=== PATIENT | female | born 1945 | race Caucasian/White ===

== ENCOUNTER → 2017-06-14 09:54 | Outpatient (CLI) | payer MEDICARE, OTHER ==
[2012-04-10 17:23] VITALS: BMI 23.9
[2017-06-15 17:13] LABS: HEPATITIS C ANTIBODY <0.1 (0.0-0.9)
== END | disposition home or self-care (01) ==
LOC: D.US 06-13 10:00
PROVIDERS: Internal Medicine Gastroenterology
DX: Z85.038 Personal history of other malignant neoplasm of large intestine (principal); Z86.010 Personal history of colon polyps; R74.8 Abnormal levels of other serum enzymes; R19.7 Diarrhea, unspecified; R94.5 Abnormal results of liver function studies

== ENCOUNTER → 2017-06-20 07:41 | Outpatient (CLI) | payer MEDICARE, OTHER ==
[2012-04-10 17:23] VITALS: BMI 23.9
[2017-06-20 09:04] LABS: ALBUMIN 3.5 g/dL (3.4-5.0); BILIRUBIN - DIRECT 0.06 mg/dL (0.00-0.30); BILIRUBIN - INDIRECT 0.13 mg/dL (0.00-1.00); BILIRUBIN - TOTAL 0.19 mg/dL (0.2-1.3); PROTEIN - SERUM 6.8 g/dL (6.4-8.2)
== END | disposition home or self-care (01) ==
LOC: D.LAB 07:41 → D.MRI 08:00
PROVIDERS: Internal Medicine Gastroenterology
DX: N28.9 Disorder of kidney and ureter, unspecified (principal); K76.9 Liver disease, unspecified; R94.5 Abnormal results of liver function studies

== ENCOUNTER 2017-10-21 00:47 | Emergency (ER) | payer MEDICARE, OTHER ==
[2012-04-10 17:23] VITALS: BMI 23.9
[2017-10-21 01:54] LABS: BASOPHILS 0.2 % (0-2); EOSINOPHILS 0.8 % (0-7); HEMATOCRIT 37.5 % (36.0-48.0); HEMOGLOBIN 12.6 g/dL (12-16); IMMATURE GRANULOCYTES 0.4 % (0-5); LYMPHOCYTES 17.6 % (15-50); MCH 30.7 pg (26.0-34.0); MCHC 33.6 g/dL (31.0-37.0); MCV 91.5 fL (80.0-100.0); MEAN PLATELET VOLUME 10.1 fL (7.4-10.4); MONOCYTES 5.3 % (2-11); NEUTROPHILS 75.7 % (40-80); RDW 14.5 % (11.5-14.5); WBC 11.3 10x3/uL (4.8-10.8)
[2017-10-21 02:01] LABS: PLATELET COUNT 168 10x3/uL (130-400)
[2017-10-21 02:06] LABS: ALBUMIN 3.6 g/dL (3.4-5.0); ANION GAP 9.8 mmol/L (8-16); BILIRUBIN - TOTAL 0.3 mg/dL (0.2-1.3); CARBON DIOXIDE 28.2 mmol/L (21.0-32.0); PROTEIN - SERUM 6.7 g/dL (6.4-8.2)
== END 2017-10-21 02:40 | disposition home or self-care (01) ==
LOC: D.ER 00:47
PROVIDERS: Emergency Medicine
DX: R11.10 Vomiting, unspecified (principal); I95.9 Hypotension, unspecified; R55 Syncope and collapse; T43.215A Adverse effect of selective serotonin and norepinephrine reuptake inhibitors, initial encounter; Y92.019 Unspecified place in single-family (private) house as the place of occurrence of the external cause; E11.65 Type 2 diabetes mellitus with hyperglycemia; F17.200 Nicotine dependence, unspecified, uncomplicated

== ENCOUNTER → 2018-01-05 08:27 | Outpatient (CLI) | payer MEDICARE, OTHER ==
[2012-04-10 17:23] VITALS: BMI 23.9
== END | disposition home or self-care (01) ==
LOC: D.MRI 12-20 10:00
DX: K76.9 Liver disease, unspecified (principal); N28.9 Disorder of kidney and ureter, unspecified

== ENCOUNTER → 2018-01-17 11:04 | Outpatient (CLI) | payer MEDICARE, OTHER ==
[2012-04-10 17:23] VITALS: BMI 23.9
== END | disposition home or self-care (01) ==
LOC: D.CT 11:04
DX: R91.1 Solitary pulmonary nodule (principal)

== ENCOUNTER 2018-07-27 00:45 | Observation (INO) | payer MEDICARE, OTHER ==
[2018-07-27] VITALS (8 sets, daily range): BP systolic 96–142; BP diastolic 41–55; Ht 149.9 cm; Wt 50.8 kg
[~2018-07-27] VITALS: Ht 149.9 cm; Wt 50.8 kg
[2018-07-27] MEDS ORDERED: PIOGLITAZONE HC30 MG PO (00:50)
[2018-07-27] MEDS ORDERED: GLUCOPHAGE500 MG PO (00:50)
[2018-07-27] MEDS ORDERED: NEXIUM40 MG PO (00:51)
[2018-07-27] MEDS ORDERED: MIRAPEX1 MG PO (00:51)
[2018-07-27] MEDS ORDERED: INDERAL LA60 MG PO (00:51)
[2018-07-27] MEDS ORDERED: SYNTHROID50 MCG PO (00:52)
[2018-07-27] MEDS ORDERED: NEURONTIN 300300 MG PO (00:52)
[2018-07-27] MEDS ORDERED: LEXAPRO20 MG PO (00:53)
[2018-07-27] MEDS ORDERED: ZANAFLEX4 MG PO (00:53)
[2018-07-27] MEDS ORDERED: LANTUS SOL100 UNIT/1 SC (00:53)
[2018-07-27 01:43] LABS: BASOPHILS 0.1 % (0-2); EOSINOPHILS 1.7 % (0-7); HEMATOCRIT 33.1 % (36.0-48.0); HEMOGLOBIN 10.7 g/dL (12-16); IMMATURE GRANULOCYTES 0.3 % (0-5); LYMPHOCYTES 21.3 % (15-50); MCH 28.8 pg (26.0-34.0); MCHC 32.3 g/dL (31.0-37.0); MEAN PLATELET VOLUME 9.4 fL (7.4-10.4); MONOCYTES 6.8 % (2-11); NEUTROPHILS 69.8 % (40-80); PLATELET COUNT 181 10x3/uL (130-400); RBC 3.72 10x6/uL (4.00-5.40); RDW 16.3 % (11.5-14.5); WBC 7.5 10x3/uL (4.8-10.8)
--- NOTE | 2018-07-27 01:50 | NUR ---
IV SITED TO RIGHT WRIST USING 20G IV CATH X 1 STICK, FLUSHED, TAPED SECURELY.
[2018-07-27 01:55] LABS: APTT 32.7 SECONDS (22.8-39.4); INR 1.04 (0.85-1.17); PROTIME 13.1 SECONDS (11.6-15.0)
[2018-07-27 02:04] LABS: ALBUMIN 2.8 g/dL (3.4-5.0); ALKALINE PHOSPHATASE 97 U/L (46-116); ALT (SGPT) 19 U/L (10-68); BILIRUBIN - TOTAL 0.17 mg/dL (0.2-1.3); CALC OSMOLALITY 289 mosm/kg (275-300); CALCIUM 8.3 mg/dL (8.5-10.1); CHLORIDE - SERUM 103 mmol/L (98-107); GLUCOSE 259 mg/dL (74-106); POTASSIUM - SERUM 3.7 mmol/L (3.5-5.1); PROTEIN - SERUM 6.3 g/dL (6.4-8.2); SODIUM 140 mmol/L (136-145); UREA NITROGEN 18 mg/dL (7-18); eGFR NON AFRICAN AMERICAN 57 mL/min (90-120)
[2018-07-27 02:22] LABS: CKMB 1.8 U/L (0.0-3.6); CREATINE KINASE 81 UL (21-215); MAGNESIUM - SERUM 1.6 mg/dL (1.8-2.4); THYROID STIMULATING HORMONE 5.98 uIU/mL (0.36-3.74); TROPONIN-I < 0.017 ng/mL (0.000-0.060)
--- NOTE | 2018-07-27 03:39 | NUR ---
REPORT GIVEN TO PRETTY RUSH
--- NOTE | 2018-07-27 03:59 | NUR ---
PT ARRIVED TO ROOM 2115. PT IS AAO, UP AD NOEL STATES SHE WILL CALL NURSE IF ASSIST IS NEEDED. SLIGHT WEAKNESS IS NOTED ON LOWER EXTREM. PT HAS A RIGHT WRIST/FOREARM 20G S/L SANDWICH GIVEN PT WILL CALL FOR ASSIST WHEN NEEDED. ADMIT COMPLETE. WILL CPOC
[2018-07-27] MEDS ORDERED: NORCO 10-325 TA1 TAB PO (04:08)
[2018-07-27] MEDS ORDERED: MELATONIN10 M1 PO (04:09)
[2018-07-27] MEDS ORDERED: OSTEO BI-FLEX1 EAC1 PO (04:10)
--- NOTE | 2018-07-27 08:08 | NUR ---
TELEMETRY SR. REFUSES SCDS THIS AM. CALL LIGHT IN REACH. WILL CONT. PLAN OF CARE.
--- NOTE | 2018-07-27 11:20 | NUR ---
LEAVING FOR MRI BY W/C.
--- NOTE | 2018-07-27 12:56 | NUR ---
CAROTID DOPPLER DONE AT BS.
[2018-07-27 13:12] LABS: CHOL - HDL RATIO 3.4 ratio (2.3-4.1)
--- NOTE | 2018-07-27 19:14 | NUR ---
PT WALKING [facility] MED 2. PT BACK TO ROOM. NAME AND DATE PLACED ON BOARD. PT DENIES ANY NEEDS. NO S/S OF DISTRESS. PT STATES NO CHANGES FROM THIS MORNING WHEN NURSE FIRST MET, PT IS AAO UP AD NOEL WITH STEADY GAIT. WILL CPOC
--- NOTE | 2018-07-27 22:04 | NUR ---
PT FSBS IS 198 15 UNITS OF LANTUS GIVEN ORDERED. PT GIVEN NORCO REQUESTED .PT RESTING IN BED. FAMILY AT BEDSIDE. DENIES ANY NEEDS. WILL CPOC
--- NOTE | 2018-07-28 02:45 | NUR ---
PT SLEEP, RESP EVEN AND UNLABORED. FAMILY AT BEDSIDE. PT AROUSES TO VERBAL STIMULI. PT HAS BEEN NPO SINCE MIDNIGHT FOR CTA OF CAROTIDS TODAY. PT DENIES ANY NEEDS. NO S/S OF DISTRESS. WILL CPOC
--- NOTE | 2018-07-28 06:30 | NUR ---
PT RESTING IN BED. SPOKE WITH PT ABOUT INDERAL MEDICATION. YESTURDAY PT TOLD ME SHE IS ON 120MG QHS. NOTED THAT PT HR DROPPED DOWN TO 45 MOST OF NIGHT AND 41 DURING THIS HOUR. ACCORDING TO PHARMACY AND DAUGHTER PT ON 60MG QHS. WILL CHANGE IN MED REC. SPOKE TO NEW NURSE IN CHARGE ABOUT CHANGING EMAR AND EDUCATED PT REGARDING MEDICATION AND IMPORTANCE OF CORRECT DOSING, PT VERBALIZED UNDERSTANDING. PT DENIES ANY NEEDS. NO S/S OF DISTRESS. WILL CPOC
[2018-07-28 07:51] LABS: ALBUMIN 2.8 g/dL (3.4-5.0); BILIRUBIN - TOTAL 0.23 mg/dL (0.2-1.3); CREATININE - SERUM 0.8 mg/dL (0.6-1.3); PROTEIN - SERUM 6.5 g/dL (6.4-8.2)
[2018-07-28 07:52] LABS: BASOPHILS 0.3 % (0-2); EOSINOPHILS 1.6 % (0-7); HEMATOCRIT 34.5 % (36.0-48.0); HEMOGLOBIN 11.3 g/dL (12-16); IMMATURE GRANULOCYTES 0.3 % (0-5); LYMPHOCYTES 42.7 % (15-50); MCH 29.1 pg (26.0-34.0); MCHC 32.8 g/dL (31.0-37.0); MCV 88.9 fL (80.0-100.0); MEAN PLATELET VOLUME 9.9 fL (7.4-10.4); MONOCYTES 8.8 % (2-11); NEUTROPHILS 46.3 % (40-80); PLATELET COUNT 196 10x3/uL (130-400); RBC 3.88 10x6/uL (4.00-5.40); RDW 16.6 % (11.5-14.5); WBC 6.7 10x3/uL (4.8-10.8)
[2018-07-28 08:24] LABS: ANION GAP 11.7 mmol/L (8-16); CARBON DIOXIDE 31.5 mmol/L (21.0-32.0); MAGNESIUM - SERUM 2.2 mg/dL (1.8-2.4); POTASSIUM - SERUM 5.2 mmol/L (3.5-5.1)
--- NOTE | 2018-07-28 08:34 | NUR ---
KRISTIAN FOR X-RAY BY W/C FOR CTA CAROTIDS.
[2018-07-28 08:39] VITALS: BP 147/40
[2018-07-28 11:36] VITALS: BP 105/42
[2018-07-28] MEDS ORDERED: LIPITOR10 MG PO (12:45)
[2018-07-28] MEDS ORDERED: BAYER CHEWABLE81 MG PO (12:46)
--- NOTE | 2018-07-28 13:15 | NUR ---
TRIPPED ON SHOWER CHAIR AND FELL INTO HAND RAIL GETTING OUT OF SHOWER. SM BUMP NOTED BEHIND LEFT EAR. CARLYLE CARRANZA NOTIFIED.
--- NOTE | 2018-07-28 13:21 | NUR ---
TRIPPED AND FELL GETTING OUT OF SHOWER. HIT RIGHT SIDE ON ONTO HAND RALE. SM BUMP NOTED TO SITE. DILLON TADEO NOTIFIED.
--- NOTE | 2018-07-28 13:42 | NUR ---
VS 98.9 77 20 195/66 96% RA. EXAMINED BY DILLON TADEO. NO NEW ORDERS. WILL CONT. WITH DCD.
--- NOTE | 2018-07-28 14:11 | NUR ---
IV AND TELEMETRY DCD. DC PLANS GIVEN. UNDERSTANDING VOICED. ESCORTED TO CAR BY W/C.
--- NOTE | 2018-07-31 08:08 | MORECARE ---
CASE MANAGEMENT DISCHARGE SUMMARY PATIENT: BERENICE VALENCIA UNIT: [id number] ADM DATE: 07/27/18 AGE: 73 : 43 SEX: F ROOM/BED: D.4446 AUTHOR: HELEN ROOT PHYSICIAN: REFERRING PHYSICIAN: ADOLFO OLGUIN DO DATE OF SERVICE: 07/31/18 Discharge Plan Patient Name: BERENICE VALENCIA [facility] [facility] 1945 Planned Disposition: Home Anticipated Discharge Date: 07/28/18 Discharge Date: 07/28/2018 Expected LOS: 1 Initial Reviewer: [email or web address] Initial Review Date: 07/31/2018 Generated: 07/31/18 9:08 am Coverage Notice Reviewer: [email or web address] Ousmane Watkins Notice Issued Date-Time: 07/28/2018 11:18 Notice Type: Medicare Outpatient Observation Notice Notice Delivered To: Patient Relationship to Patient: Self Handling Tech Name: Delivery Method: HAND - Hand Delivered Aaliyah Days: Prior Verbal Notification: Recipient Understood Notice: Yes Recipient Signature: Yes Med Rec Note Co-signed by Attending: Coverage Notice Comment: Patient Name: BERENICE VALENCIA Page [phone] at 0808 All edits/amendments must be made on the electronic document DICTATION DATE: 07/31/18 0808 GAS MAKER: DM 07/31/18 0808 RPT#: [id number] DC DATE:07/28/18 STATUS: DIS IN [facility] [address] [place] [address] END OF REPORT
--- NOTE | 2018-07-31 08:15 | MORECARE ---
CASE MANAGEMENT DISCHARGE SUMMARY PATIENT: BERENICE VALENCIA UNIT: [id number] ADM DATE: 07/27/18 AGE: 73 : 43 SEX: F ROOM/BED: D.7912 AUTHOR: HELEN ROOT PHYSICIAN: REFERRING PHYSICIAN: ADOLFO OLGUIN DO DATE OF SERVICE: 07/31/18 Discharge Plan Patient Name: BERENICE VALENCIA [facility] [facility] 1945 Planned Disposition: Home Anticipated Discharge Date: 07/28/18 Discharge Date: 07/28/2018 Expected LOS: 1 Initial Reviewer: [email or web address] Initial Review Date: 07/31/2018 Generated: 07/31/18 9:15 am Coverage Notice Reviewer: [email or web address] Ousmane Watkins Notice Issued Date-Time: 07/28/2018 11:18 Notice Type: Medicare Outpatient Observation Notice Notice Delivered To: Patient Relationship to Patient: Self Cabana Attendant Name: Delivery Method: HAND - Hand Delivered Aaliyah Days: Prior Verbal Notification: Recipient Understood Notice: Yes Recipient Signature: Yes Med Rec Note Co-signed by Attending: Coverage Notice Comment: Patient Name: BERENICE VALENCIA Page [phone] at 0815 All edits/amendments must be made on the electronic document DICTATION DATE: 07/31/18814 LOADER OPERATOR: CRESENCIO 07/31/18 0815 RPT#: [id number] DC DATE:07/28/18 STATUS: DIS IN [facility] [address] [place] [address] END OF REPORT
--- NOTE | 2018-08-05 12:54 | EC ---
PATIENT:BERENICE VALENCIA DATE OF SERVICE: 07/27/18 SEX: F MEDICAL RECORD: [id number] DATE OF : 41 LOCATION:D.M2 D.211 AGE OF PATIENT: 73 ADMISSION DATE: 07/27/18 REFERRING PHYSICIAN: INTERPRETING PHYSICIAN: ASHLEY ENCINAS MD ECHOCARDIOGRAM REPORT ECHO CHARGES 4 ECHO COMPLETE Date: 07/27/18 CLINICAL DIAGNOSIS: TIA HX OF TIA'S ECHOCARDIOGRAPHIC MEASUREMENTS (adult normal given) AC root (d.<3.7cm) 2.8 cm LV Septum d (<1.2 cm> 1.1 cm Valve Excursion 1.6 cm LV Septum (systole) 1.3 cm Left Atria (s.<4.0cm> 3.1 cm LVPW d(<1.2cm) 1.1 cm RV (d.<2.3cm) 2.5 cm LVPW (sytole) 1.6 cm LV diastole(<5.6CM) 3.4 cm MV E-F(>70mm/sec) cm LV systole 2.1 cm LVOT Diameter 1.9 cm MV exc.(>10mm) 1.3 cm Est.ejection fraction (50-75%) % DOPPLER: LVIT cm/sec A 89.0 cm/sec E 103 cm/sec LA cm/sec RVSP 45 mmHg LVOT 110 cm/sec AOP1/2T 896 m/s Asc. Ao 147 cm/sec RVOT 69 cm/sec RA cm/sec PA 112 cm/sec AV Gradient Peak 8.59 mmHg AV Mean 4.33 mmHg AV Area 2.3 cm MV Gradient Peak 6.72 mmHg MV Mean 2.17 mmHg MV Area cm COMMENTS: Financial Professional: Geremias MEJIA It Architecture Analyst: 3 Dr. Platt TAPE# PACS Pericardial Effusion N DATE OF SERVICE: 07/27/2018 Adequate 2-D echo, color flow and spectral Doppler, and M-mode. No LVH. LV internal dimensions are normal. Wall motion is normal. EF is greater than or equal to 55%. Aortic valve is tricuspid. No evidence of stenosis by Doppler interrogation. Mild AI by color flow imaging. Left atrium is normal at 3.1 cm. Mitral valve shows no prolapse. Mild MR. Right-sided chambers are grossly normal. Mild TR. ECHOCARDIOGRAM REPORT [id number] BERENICE VALENCIA TRANSINT:[id number] Voice Confirmation ID: [id number] DOCUMENT ID: [id number] ASHLEY ENCINAS MD at 1254 CC: [id number] DICTATION DATE: 07/27/18 1408 MANAGER HEART: 07/27/18 1857 DIS IN 07/28/18 [facility] [address] [place] [place] [id number]
== END 2018-07-28 14:12 | disposition home or self-care (01) ==
LOC: D.ER 00:45 → OBSVTIME 03:04 → D.M2 03:04
PROVIDERS: Family Medicine; ADMIT Family Medicine
DX: G45.9 Transient cerebral ischemic attack, unspecified (principal); E11.65 Type 2 diabetes mellitus with hyperglycemia; E03.9 Hypothyroidism, unspecified; D64.9 Anemia, unspecified; Z87.891 Personal history of nicotine dependence; K21.9 Gastro-esophageal reflux disease without esophagitis; Z86.73 Personal history of transient ischemic attack (TIA), and cerebral infarction without residual deficits

== ENCOUNTER 2019-05-29 22:21 | Emergency (ER) | payer MEDICARE, OTHER ==
[~2019-05-29] VITALS: Ht 149.9 cm; Wt 50.0 kg
[~2019-05-29 22:21] MED LIST: BAYER CHEWABLE81 MG PO; GLUCOPHAGE500 MG PO; INDERAL LA60 MG PO; LANTUS SOL100 UNIT/1 SC; LEXAPRO20 MG PO; LIPITOR10 MG PO; MELATONIN10 M1 PO; MIRAPEX1 MG PO; NEURONTIN 300300 MG PO; NEXIUM40 MG PO; NORCO 10-325 TA1 TAB PO; OSTEO BI-FLEX1 EAC1 PO; PIOGLITAZONE HC30 MG PO; SYNTHROID50 MCG PO; ZANAFLEX4 MG PO
[2019-05-29 22:35] VITALS: Ht 149.9 cm; Wt 50.0 kg
[2019-05-29 23:35] LABS: HEMATOCRIT 34.3 % (36.0-48.0); HEMOGLOBIN 11.3 g/dL (12-16); LYMPHOCYTES 26.6 % (15-50); MCH 28.7 pg (26.0-34.0); MCHC 32.9 g/dL (31.0-37.0); MCV 87.1 fL (80.0-100.0); MEAN PLATELET VOLUME 9.8 fL (7.4-10.4); NEUTROPHILS 65.6 % (40-80); PLATELET COUNT 186 10x3/uL (130-400); RBC 3.94 10x6/uL (4.00-5.40); WBC 11.7 10x3/uL (4.8-10.8)
[2019-05-29 23:46] LABS: ALBUMIN 3.1 g/dL (3.4-5.0); ANION GAP 9.5 mmol/L (8-16); BILIRUBIN - TOTAL 0.24 mg/dL (0.2-1.3); CALCIUM 8.5 mg/dL (8.5-10.1); CARBON DIOXIDE 29.6 mmol/L (21.0-32.0); CREATININE - SERUM 0.9 mg/dL (0.6-1.3); POTASSIUM - SERUM 4.1 mmol/L (3.5-5.1); PROTEIN - SERUM 6.6 g/dL (6.4-8.2)
[2019-05-30 01:06] VITALS: BP 136/75
== END 2019-05-30 01:07 | disposition home or self-care (01) ==
LOC: D.ER 22:21
PROVIDERS: Emergency Medicine
DX: S89.92XA Unspecified injury of left lower leg, initial encounter (principal); W19.XXXA Unspecified fall, initial encounter; Y93.9 Activity, unspecified; Y92.9 Unspecified place or not applicable; M79.89 Other specified soft tissue disorders; E11.40 Type 2 diabetes mellitus with diabetic neuropathy, unspecified; Z79.4 Long term (current) use of insulin; Z86.73 Personal history of transient ischemic attack (TIA), and cerebral infarction without residual deficits

== ENCOUNTER → 2020-03-07 11:30 | Outpatient (CLI) | payer MEDICARE, OTHER ==
[2019-05-29 22:35] VITALS: BMI 22.2
== END | disposition home or self-care (01) ==
LOC: D.MAMMO 11:30
PROVIDERS: ATTEND Nurse Practitioner Family
DX: Z12.31 Encounter for screening mammogram for malignant neoplasm of breast (principal)

== ENCOUNTER 2020-12-20 18:38 | Inpatient (IN) | payer MEDICARE, OTHER ==
[~2020-12-20] VITALS: Ht 149.9 cm; Wt 54.5 kg
--- NOTE | ~2020-12-20 | OP ---
PATIENT NAME: BERENICE VALENCIA MEDICAL RECORD: [id number] :41 LOCATION:D.MS [id number] ADMISSION DATE:12/20/20 SURGEON: CARMELA DENG MD DATE OF OPERATION: 12/21/2020 PREOPERATIVE DIAGNOSES: 1. Left trimalleolar ankle fracture/dislocation. 2. Possible compartment syndrome, left lower extremity. POSTOPERATIVE DIAGNOSIS: Left trimalleolar ankle fracture/dislocation. PROCEDURE PERFORMED: ORIF, left trimalleolar ankle fracture including the posterior malleolus. INDICATIONS: Ms. Valencia is a 75-year-old female who fell in her yard yesterday and injured her left ankle. She stepped in a hole when she twisted her ankle and sustained a left trimalleolar ankle fracture/dislocation. She was brought to [facility] and the ankle was reduced in the Emergency Department. She was admitted for surgery, and on evaluation this morning, she was noted to be in significant pain. We attempted to control her pain with medications, but were not making very much progress. Exam did not appear to show compartment syndrome, but given her pain out of proportion to the injury, it was felt that it would be beneficial to proceed with surgery for repair of her ankle with possible fasciotomies of the lower leg. Risks, benefits, and alternatives of surgery were discussed with the patient and her family and consent was obtained. DESCRIPTION OF PROCEDURE: The patient was met in the holding area where her identity and confirmation of the procedure was performed. The left lower extremity was marked and she was taken to the operating room where she was placed supine on the operating table. Anesthesia was administered. A tourniquet was applied in the left leg and left leg was prepped and draped in a sterile fashion. The patient received preoperative antibiotics and timeout was performed prior to initiating the case. Up on initiation of the case, the leg was exsanguinated and the tourniquet was raised. Total tourniquet time was 87 minutes. A posterolateral approach was made to the posterior tibia and distal fibula. An incision was made over the posterior border of the fibula between the fibula and Achilles. We curved anteriorly towards the lateral malleolus distally. We incised through the skin and subcutaneous tissues and dissected down to the fascia over the lateral and deep posterior compartment. The fascia was then incised and we continued our dissection deep to the posterior border of the tibia. The FHL was elevated off the posterior tibia and our fracture was identified. The fracture was debrided and it was then reduced with the positioning of the ankle. A K-wire was placed distally to hold the posterior malleolus in place. We then positioned a one-third tubular plate over the posterior border of the tibia and held this in place with K wires. I placed a screw just proximal to our fracture and then a second screw at the proximal end of the plate to provide a buttress effect of the posterior malleolus. This provided good realignment of the ankle itself. We then turned our attention to the fibula. There was a Harris B fracture of the fibula at the level of the syndesmosis. Fracture was debrided and reduced with a lobster claw clamp. It was then held in place with the K-wire and a lag screw was placed anterior to posterior. We then placed a Elif 6-hole distal fibular plate. We positioned it over the lateral cortex of the fibula. We held this in place with K wires. X-rays were performed, which showed good alignment of her fracture and confirmed positioning of our plate. A 3.5 cortical screw was then placed proximal to the OPERATIVE REPORT [id number] VALENCIA,BERENICE J fracture. The plate was compressed to the bone. Four 2.7 locking screws were placed distally through the plate under fluoroscopy. We then placed 3 more proximal 3.5 locking screws to complete our fixation. This provided good realignment of the fibula. We then turned our attention to the medial malleolus. Incision was made over the medial ankle, dissecting down through the skin and subcutaneous tissue to the medial tibia. Our fracture was able to be easily identified and there was significant stripping of the periosteum in this area. The fracture was debrided. The ankle was irrigated thoroughly with saline. There were some loose fragments that were also removed from this area. The ankle was then reduced and guidewires for cannulated screws were placed. We confirmed their position under fluoroscopy. Two 4.0 mm size 50 partially threaded cannulated screws were then placed and advanced down sequentially tightened to provide fixation for medial malleolus. The guidewires were then removed and final images were obtained of the ankle showed good alignment and fixation of the trimalleolar fracture. External rotation stress view was performed, did not show any evidence of widening. Wounds were irrigated thoroughly with saline. The deep tissues were closed with Vicryl suture and the skin was closed with nylon. A sterile dressing was placed. The patient was placed into a well-padded splint, turned back over to anesthesia where she was awakened and taken to the recovery room in stable condition. POSTOPERATIVE PLAN: The patient is going to be admitted for continued postoperative care. She will receive 24 hours of postoperative antibiotics and will be started on DVT prophylaxis tomorrow. Physical therapy will be consulted to assist with mobilization. Nonweightbearing left lower extremity. She may require a course of rehab upon discharge. COMPLICATIONS: None. ESTIMATED BLOOD LOSS: 25 mL. ANESTHESIA: General. TRANSINT:[id number] Voice Confirmation ID: [id number] DOCUMENT ID: [id number] CARMELA DENG MD CC: [id number] DICTATION DATE: 12/21/202228 RIVET HOLE PUNCHER: 12/22/20 0014 ADM IN [facility] [address] [place] [id number]
[2020-12-20 19:49] LABS: BASOPHILS 0.4 % (0-2); EOSINOPHILS 1.1 % (0-7); HEMATOCRIT 35.4 % (36.0-48.0); HEMOGLOBIN 11.6 g/dL (12-16); LYMPHOCYTES 22.3 % (15-50); MCHC 32.8 g/dL (31.0-37.0); MCV 91.5 fL (80.0-100.0); MEAN PLATELET VOLUME 8.1 fL (7.4-10.4); MONOCYTES 8.7 % (2-11); NEUTROPHILS 67.5 % (40-80); PLATELET COUNT 192 10x3/uL (130-400); RBC 3.86 10x6/uL (4.00-5.40); RDW 16.3 % (11.5-14.5); WBC 7.3 10x3/uL (4.8-10.8)
[2020-12-20 20:00] LABS: APTT 29.7 SECONDS (22.8-39.4); INR 1.06 (0.85-1.17); PROTIME 12.7 SECONDS (11.6-15.0)
[2020-12-20 20:03] LABS: ANION GAP 9.3 mmol/L (8-16); CALCIUM 8.8 mg/dL (8.5-10.1); CARBON DIOXIDE 28.2 mmol/L (21.0-32.0); CREATININE - SERUM 0.9 mg/dL (0.6-1.3); POTASSIUM - SERUM 4.5 mmol/L (3.5-5.1)
[2020-12-20 20:07] LABS: ALBUMIN 3.4 g/dL (3.4-5.0); BILIRUBIN - TOTAL 0.38 mg/dL (0.2-1.3); MAGNESIUM - SERUM 2.3 mg/dL (1.8-2.4); PROTEIN - SERUM 6.9 g/dL (6.4-8.2)
[2020-12-20 20:23] VITALS: BP 138/47
[2020-12-20 21:20] VITALS: BP 156/51
[2020-12-20 23:09] VITALS: BP 162/58
--- NOTE | 2020-12-20 23:30 | NUR ---
REC'D PATIENT FROM ER TO ROOM 2233. ASSISTED PATIENT INTO GOWN AND REPOSITIONING IN BED. ELEVATED LLE ON PILLOWS X2 AND APPLIED ICE. INSTRUCTED PATIENT ON USE OF I.S., PLACED SCD TO RLE, COMPLETED ASSESSMENT AND MED REC, INSTRUCTED PATIENT ON NPO. GUEST AT BEDSIDE. PATIENT DENIES OTHER NEEDS AT THIS TIME. BED IN LOWEST POSITION, CALL LIGHT IN REACH, AND BED ALARM ON. ENCOURAGED PATIENT AND GUEST TO CALL WITH NEEDS.
[2020-12-20 23:53] VITALS: BP 138/42; Ht 149.9 cm; Wt 54.5 kg
--- NOTE | 2020-12-21 01:15 | NUR ---
PAGED DILLON YOO IN REGARDS TO PATIENT C/O 04/12 PAIN.
[2020-12-21 04:00] VITALS: BP 160/36
[2020-12-21 06:08] LABS: BASOPHILS 0.6 % (0-2); EOSINOPHILS 0.9 % (0-7); HEMOGLOBIN 11.5 g/dL (12-16); LYMPHOCYTES 26.1 % (15-50); MCH 30.3 pg (26.0-34.0); MCHC 32.7 g/dL (31.0-37.0); MCV 92.8 fL (80.0-100.0); MEAN PLATELET VOLUME 8.6 fL (7.4-10.4); MONOCYTES 9.2 % (2-11); NEUTROPHILS 63.2 % (40-80); PLATELET COUNT 177 10x3/uL (130-400); RBC 3.78 10x6/uL (4.00-5.40); RDW 16.1 % (11.5-14.5)
[2020-12-21 07:40] LABS: % SATURATION 24 % (15-55); IRON 126 ug/dl (35-150); TOTAL IRON BIND CAPACITY 507 ug/dl (260-445); UNSAT IRON BIND CAPACITY 381 ug/dl (150-375)
[2020-12-21 07:45] LABS: ALBUMIN 3.3 g/dL (3.4-5.0); ALKALINE PHOSPHATASE 179 U/L (30-120); ALT (SGPT) 279 U/L (10-68); BILIRUBIN - TOTAL 1.17 mg/dL (0.2-1.3); CALCIUM 8.3 mg/dL (8.5-10.1); CARBON DIOXIDE 28.4 mmol/L (21.0-32.0); CHLORIDE - SERUM 105 mmol/L (98-107); CKMB 6.1 U/L (0.0-3.6); CREATINE KINASE 354 UL (21-215); FERRITIN 56 ng/mL (3-244); MAGNESIUM - SERUM 2.2 mg/dL (1.8-2.4); POTASSIUM - SERUM 4.5 mmol/L (3.5-5.1); PROTEIN - SERUM 6.8 g/dL (6.4-8.2); SODIUM 140 mmol/L (136-145); TROPONIN-I < 0.017 ng/mL (0.000-0.060); UREA NITROGEN 31 mg/dL (7-18); eGFR NON AFRICAN AMERICAN 57 mL/min (90-120)
[2020-12-21 08:04] LABS: CALC OSMOLALITY 283 mosm/kg (275-300); GLUCOSE 69 mg/dL (74-106)
--- NOTE | 2020-12-21 08:18 | NUR ---
AWAKE AND ALERT. ORIENTED X3. NO C/O AT THIS TIME. FAMILY AT BEDSIDE. LUNGS HAVE FAINT CRACKELS IN UPPER LOBES, NO COUGH NOTED. SKIN IS INTACT WTIHOUT REDNESS. DRESSING IN PLACE TO LEFT LEG, MOVES DIGITS FREELY. IV TO LEFT WRIST IS PATENT WITHOUT REDNESS AT INSERTION SITE. DENIES NEEDS.
[2020-12-21 08:27] VITALS: BP 145/66
--- NOTE | 2020-12-21 09:11 | NUR ---
REQUESTED AND GIVEN ONE MG DILAUDID SLOW IVP FOR C/O LEFT FOOT PAIN LEVEL 8. WILL MONITOR.
--- NOTE | 2020-12-21 10:54 | NUR ---
SPOKE WITH DR. SMITH RE CONTINUED INCREASED PAIN LEVEL 10. NEW ORDERS FOR DURAGESIC PATCH RECEIVED AND PATCH PLACED. WILL MONITOR.
--- NOTE | 2020-12-21 11:09 | NUR ---
DR. DENG HERE. CONTINUED C/O INCREASED PAIN LEVEL 10. NEW ORDERS FOR A ONE TIME DOSE OF TORADOL RECEIVED AND GIVEN . WILL MONITOR.
[2020-12-21 13:02] VITALS: BP 116/55
--- NOTE | 2020-12-21 13:13 | NUR ---
REQUESTED AND GIVEN TWO PERCOCET FOR C/O PAIN LEVEL 9. WILL MONITOR. DAUGHTER AT BEDSIDE.
[2020-12-21 15:30] LABS: BILIRUBIN NEGATIVE (NEGATIVE); KETONE NEGATIVE mg/dL (< 1+); NITRITE NEGATIVE (NEGATIVE); PH 5.5 (5.0-8.0); SQUAMOUS EPITHELIAL 1 HPF (0-4); UROBILINOGEN 6 mg/dL (< 2); WHITE CELLS - URINE 7 HPF (0-4)
--- NOTE | 2020-12-21 16:04 | NUR ---
USED BED PHIPPS. SPECIMEN SENT TO LAB. REQUESTED AND GIVEN 0.5MG DILAUDID SLOW IVP FOR C/O PAIN TO LEFT FOOT LEVEL 10. WILL MONITOR.
[2020-12-21 17:27] VITALS: BP 104/42
--- NOTE | 2020-12-21 18:45 | NUR ---
ANESTHESIA CALLED TO ADMINISTER PRE OP MEDS. SEE SEP/.
--- NOTE | 2020-12-21 19:56 | NUR ---
PATIENT TAKEN FOR SURGERY
--- NOTE | 2020-12-21 19:56 | NUR ---
OFF UNIT VIA BED AT THIS TIME TO SURGERY. FAMILY IN ROOM.
[2020-12-21 23:51] VITALS: BP 117/48
--- NOTE | 2020-12-21 23:57 | NUR ---
2340 CALLED CATALINA RADIAL SAW OPERATOR AFTER GIVING UPDRAFT TREATMENT FOR WHEEZING REGARDING SPO2 OF 92 ON 4L NC. PATIENT IS AWAKE AND ORIENTED X3. HER SBP IS STABLE 110S AND HR SINUS IN 60S-70S. NO RESPIRATORY DISTRESS NOTED, RESPIRATIONS ARE REGULAR AND UNLABORED. BJ STATED PATIENT IS OK TO TRANSFER EVEN WITH LOW SPO2 ON 4L. PATIENT TRANSFERED TO [facility] SURGE STABLE WITHOUT CHANGE IN VITAL SIGNS. REPORT GIVEN AT BEDSIDE.
[2020-12-22] VITALS (13 sets, daily range): BP systolic 89–128; BP diastolic 35–58
--- NOTE | 2020-12-22 00:22 | NUR ---
PAGED DILLON YOO IN REGARDS TO PATIENT REQUEST FOR MIRAPEX.
--- NOTE | 2020-12-22 00:51 | NUR ---
PAGED DILLON YOO IN REGARDS TO PATIENT REQUEST FOR MIRAPEX.
--- NOTE | 2020-12-22 01:50 | NUR ---
PATIENT VOIDED POSTOP
[2020-12-22 05:58] LABS: BASOPHILS 0.2 % (0-2); EOSINOPHILS 0 % (0-7); HEMATOCRIT 32.9 % (36.0-48.0); HEMOGLOBIN 10.8 g/dL (12-16); LYMPHOCYTES 8.2 % (15-50); MCH 30.7 pg (26.0-34.0); MCV 92.9 fL (80.0-100.0); MEAN PLATELET VOLUME 8.9 fL (7.4-10.4); MONOCYTES 1.9 % (2-11); NEUTROPHILS 89.7 % (40-80); PLATELET COUNT 165 10x3/uL (130-400); RBC 3.54 10x6/uL (4.00-5.40); RDW 16.5 % (11.5-14.5)
[2020-12-22 06:20] LABS: WBC 8.2 10x3/uL (4.8-10.8)
[2020-12-22 06:32] LABS: ALBUMIN 2.8 g/dL (3.4-5.0); ANION GAP 13.4 mmol/L (8-16); BILIRUBIN - TOTAL 0.47 mg/dL (0.2-1.3); CARBON DIOXIDE 25.1 mmol/L (21.0-32.0); CREATININE - SERUM 1.2 mg/dL (0.6-1.3); MAGNESIUM - SERUM 2.3 mg/dL (1.8-2.4); POTASSIUM - SERUM 5.5 mmol/L (3.5-5.1); PROTEIN - SERUM 6.3 g/dL (6.4-8.2)
--- NOTE | 2020-12-22 08:00 | NUR ---
DAUGHTER NIYAH IN ROOM. NO NEEDS AT THIS TIME. PT HAS CAP REFILL WNL. CL IN REACH. BED ALARM ON. WCTM
--- NOTE | 2020-12-22 10:20 | NUR ---
DAUGHTER BERENICE IN ROOM. SPOKE WITH WILLIE VALENCIA WITH PERMISSION FROM PT. CL IN REACH. BED ALARM ON. NO NEEDS AT THIS TIME. WCTM
[2020-12-22] MEDS ORDERED: BACLOFEN10 MG PO (10:27)
[2020-12-22] MEDS ORDERED: UNISOM SLEEP AI25 MG PO (10:27)
[2020-12-22] MEDS ORDERED: LYRICA75 MG PO (10:27)
--- NOTE | 2020-12-22 10:28 | NUR ---
MED LIST UPDATED AND CORRECTED.
--- NOTE | 2020-12-22 13:11 | NUR ---
REHAB PRESCREEN Rehab referral received and chart reviewed, this patient is currently POD 1 ORIF Left Ankle. Rehab will accept this patient if she is willing to come and participate in the required 3 hours of therapy when her physicians feel she is appropriate for discharge. Thank you for this referral! Ruba Johnson, RESIDENTIAL SUBCONTRACTOR Rehab PD
--- NOTE | 2020-12-22 15:54 | NUR ---
PT AWAKE AND ALERT WATCHING TV. DAUGHTER BERENICE WITH HER. NO NEEDS AT THIS TIME. WCTM
[2020-12-22] MEDS ORDERED: LANTUS SOL100 UNIT/2 SC (17:38)
--- NOTE | 2020-12-22 19:38 | NUR ---
PATIENT RESTING IN BED WITH NO S/S OF DISTRESS AND GUEST AT BEDSIDE. PATIENT DENIES OTHER NEEDS AT THIS TIME. BED IN LOWEST POSITION AND CALL LIGHT IN REACH. ENCOURAGED PATIENT TO CALL WITH NEEDS.
[2020-12-23] VITALS (7 sets, daily range): BP systolic 115–148; BP diastolic 35–52
[2020-12-23 07:02] LABS: BASOPHILS 0.4 % (0-2); EOSINOPHILS 0.5 % (0-7); HEMATOCRIT 29.8 % (36.0-48.0); LYMPHOCYTES 22.9 % (15-50); MCH 31.1 pg (26.0-34.0); MCHC 33.6 g/dL (31.0-37.0); MCV 92.5 fL (80.0-100.0); MONOCYTES 8.1 % (2-11); NEUTROPHILS 68.1 % (40-80); PLATELET COUNT 150 10x3/uL (130-400); RBC 3.23 10x6/uL (4.00-5.40); RDW 16.8 % (11.5-14.5); WBC 8.5 10x3/uL (4.8-10.8)
[2020-12-23 07:12] LABS: ALBUMIN 2.5 g/dL (3.4-5.0); ANION GAP 9.6 mmol/L (8-16); BILIRUBIN - TOTAL 0.34 mg/dL (0.2-1.3); CALCIUM 8.3 mg/dL (8.5-10.1); CARBON DIOXIDE 27.4 mmol/L (21.0-32.0); CREATININE - SERUM 1.1 mg/dL (0.6-1.3); MAGNESIUM - SERUM 2.5 mg/dL (1.8-2.4); PROTEIN - SERUM 6.1 g/dL (6.4-8.2)
--- NOTE | 2020-12-23 15:20 | NUR ---
OT NOTE: PT COMPLETED SUPINE TO SIT WITH MIN-MOD A. PT COMPLETED EOB SITTING WITH SPV. PT COMPLETED TOÑO SOCK WITH SETUP. PT COMPLETED HAIR GROOMING WITH SETUP. PT COMPLETED FACE HYGIENE WITH SETUP. PT REQUIRED MIN-MOD A FOR SIT TO SUPINE. [id number] KIKA DELGADO COTA
[2020-12-24] VITALS: BP 118/40
[2020-12-24 04:00] VITALS: BP 125/48
[2020-12-24 06:14] LABS: BASOPHILS 0.4 % (0-2); EOSINOPHILS 1.4 % (0-7); HEMATOCRIT 25.6 % (36.0-48.0); HEMOGLOBIN 8.6 g/dL (12-16); LYMPHOCYTES 28.4 % (15-50); MCH 30.9 pg (26.0-34.0); MCHC 33.4 g/dL (31.0-37.0); MCV 92.5 fL (80.0-100.0); MEAN PLATELET VOLUME 8.9 fL (7.4-10.4); MONOCYTES 10.5 % (2-11); NEUTROPHILS 59.3 % (40-80); PLATELET COUNT 155 10x3/uL (130-400); RBC 2.77 10x6/uL (4.00-5.40); RDW 16.3 % (11.5-14.5)
[2020-12-24 06:31] LABS: ALBUMIN 2.3 g/dL (3.4-5.0); BILIRUBIN - TOTAL 0.48 mg/dL (0.2-1.3); CALCIUM 7.9 mg/dL (8.5-10.1); CARBON DIOXIDE 24.7 mmol/L (21.0-32.0); CREATININE - SERUM 0.9 mg/dL (0.6-1.3); MAGNESIUM - SERUM 2.4 mg/dL (1.8-2.4); PROTEIN - SERUM 5.6 g/dL (6.4-8.2)
[2020-12-24 06:32] LABS: ANION GAP 11.9 mmol/L (8-16); POTASSIUM - SERUM 3.6 mmol/L (3.5-5.1)
[2020-12-24 06:39] LABS: WBC 5.9 10x3/uL (4.8-10.8)
[2020-12-24 07:57] VITALS: BP 124/58
--- NOTE | 2020-12-24 08:22 | NUR ---
AWAKE AND ALERT. ORIENTED X3. NO C/O AT THIS TIME. DAUGHTER AT BEDSIDE. LUNGS ARE CLEAR BILATERALLLY, NO COUGH NOTED. SKIN IS INTACT WITHOUT REDNESS EXCEPT INCISION TO LEFT ANKLE WHICH HAS A DRY INTACT DRESSING IN PLACE. IV TO RIGHT WRIST IS PATENT WITHOUT REDNESS AT INSERTION SITE. DENIES NEEDS.
[2020-12-24] MEDS ORDERED: DILAUDID INJ2 MG/ML IV (10:05)
[2020-12-24] MEDS ORDERED: IPRAT-ALBUT 0.5-3 ML INH (10:05)
[2020-12-24] MEDS ORDERED: COLACE100 MG PO (10:06)
[2020-12-24] MEDS ORDERED: TESSALON PERLE100 MG PO (10:06)
[2020-12-24] MEDS ORDERED: ZOFRAN INJ IV (10:06)
[2020-12-24] MEDS ORDERED: Duragesic TRANSDERM (10:06)
[2020-12-24] MEDS ORDERED: MUCINEX600 MG PO (10:06)
[2020-12-24] MEDS ORDERED: PROTONIX40 MG PO (10:06)
[2020-12-24] MEDS ORDERED: PERCOCET 5-3251 TAB PO (10:06)
[2020-12-24] MEDS ORDERED: HUMALOG 30100 UNITS/ SC (10:07)
--- NOTE | 2020-12-24 11:58 | NUR ---
PATIENT ACCEPTED TO ROOM 1117A. NOTIFIED CORAL CALLAHAN RN, CM, JAI ANAND, INTERMEDIATE MANAGER AND MORIS HERNANDEZ RN, DEVELOPMENT DISABILITY SPECIALISTCONTROLLED ATMOSPHERIC FURNACE BRAZER- Nitin MALAVE LPN, CLINICAL LIAISON
[2020-12-24 12:06] VITALS: BP 117/49
--- NOTE | 2020-12-24 14:11 | NUR ---
DISCHARGED TO REHAB AT THIS TIME AMBULATORY WITH FAMILY. DISCHARGE INSTRUCTIONS GIVEN BOTH VERBALLY AND WRITTEN. PATIENT VERBALIZED UNDERSTANDING OF SAME. ALL BELONGINGS WITH PATIENT.
--- NOTE | 2020-12-24 16:02 | NUR ---
OT NOTE: PT DOING WELL; BED MOB WITH SBA AND EXT TIME. EOB SITTING WITH GOOD BALANCE; FUNCTIONAL TRANSFERS WITH WALKER AND MOD ASSIST; PT WITH INCREASED B SHOULDER PAIN AND SURGERY ON ONE SHOULDER IN THE PAST.. HOWEVER, ALSO PRESENTS WITH UE WEAKNESS AND FATIGUE. PT IS VERY MOTIVATED TO IMPROVE; QUESTIONS ANSWERED REGARDING IP REHAB. CORAL SANCHEZ, OTR/L [phone]
== END 2020-12-24 14:12 | DRG 494 ==
LOC: D.ER 18:38 → D.EDHOLD 21:31 → D.MS 21:31
PROVIDERS: Emergency Medicine; Family Medicine; Orthopaedic Surgery; ADMIT Family Medicine; ATTEND Family Medicine
PROC: 0QSKXZZ Reposition Left Fibula, External Approach (ICD-10-PCS; principal; 2020-12-20)
PROC: 0QSHXZZ Reposition Left Tibia, External Approach (ICD-10-PCS; 2020-12-20)
PROC: 0QSH04Z Reposition Left Tibia with Internal Fixation Device, Open Approach (ICD-10-PCS; 2020-12-21)
PROC: 0QSK04Z Reposition Left Fibula with Internal Fixation Device, Open Approach (ICD-10-PCS; 2020-12-21 20:00)
DX: S82.852A Displaced trimalleolar fracture of left lower leg, initial encounter for closed fracture (principal); W01.0XXA Fall on same level from slipping, tripping and stumbling without subsequent striking against object, initial encounter; E11.40 Type 2 diabetes mellitus with diabetic neuropathy, unspecified; F41.9 Anxiety disorder, unspecified; K21.9 Gastro-esophageal reflux disease without esophagitis; D64.9 Anemia, unspecified; E03.9 Hypothyroidism, unspecified; Z87.891 Personal history of nicotine dependence; Z86.73 Personal history of transient ischemic attack (TIA), and cerebral infarction without residual deficits

== ENCOUNTER 2020-12-24 14:52 | Inpatient (IN) | payer MEDICARE, OTHER ==
[~2020-12-24] VITALS: Ht 149.9 cm; Wt 54.4 kg
[~2020-12-24 14:52] MED LIST changes: +BACLOFEN10 MG PO; +COLACE100 MG PO; +DILAUDID INJ2 MG/ML IV; +Duragesic TRANSDERM; +HUMALOG 30100 UNITS/ SC; +IPRAT-ALBUT 0.5-3 ML INH; +LANTUS SOL100 UNIT/2 SC; +LYRICA75 MG PO; +MUCINEX600 MG PO; +PERCOCET 5-3251 TAB PO; +PROTONIX40 MG PO; +TESSALON PERLE100 MG PO; +UNISOM SLEEP AI25 MG PO; +ZOFRAN INJ IV
--- NOTE | 2020-12-24 15:15 | NUR ---
ADMITTED TO REHAB ROOM 1113Z.ORIENTED TO SURROUNDINGS.CL IN REACH.
[2020-12-24 16:14] VITALS: BP 118/46; BMI 24.3
--- NOTE | 2020-12-24 19:57 | NUR ---
AWAKE AND ALERT. RESTING IN BED WITH RESPIRATIONS UNLABORED. CAST IN PLACE TO LOWER LEFT LEG/ANKLE. RIGHT FOREARM SALINE LOCK INTACT WITH NO SIGNS OF INFILTRATION. NO DISTRESS NOTED. CALL LIGHT IN REACH.
[2020-12-24 20:18] VITALS: BP 126/73
--- NOTE | 2020-12-25 05:02 | NUR ---
C/O NAUSEA AND GURD TYPE FEELING IN THROAT. MEDICATED WITH ZOFRAN PRN AND SCHEDULED PROTONIX. EMEMSIS BAG PROVIDED. WILL MONITOR. RESPIRATIONS UNLABORED. CALL LIGHT IN REACH.
[2020-12-25 06:36] LABS: BASOPHILS 0.3 % (0-2); EOSINOPHILS 1.4 % (0-7); HEMOGLOBIN 10.2 g/dL (12-16); LYMPHOCYTES 27.5 % (15-50); MCH 30.7 pg (26.0-34.0); MCHC 33.1 g/dL (31.0-37.0); MCV 92.7 fL (80.0-100.0); MEAN PLATELET VOLUME 8.8 fL (7.4-10.4); MONOCYTES 9.7 % (2-11); NEUTROPHILS 61.1 % (40-80); RDW 16.8 % (11.5-14.5); WBC 5.7 10x3/uL (4.8-10.8)
[2020-12-25 06:51] LABS: ANION GAP 11.7 mmol/L (8-16); CALCIUM 8.5 mg/dL (8.5-10.1); CARBON DIOXIDE 25.2 mmol/L (21.0-32.0); CREATININE - SERUM 0.9 mg/dL (0.6-1.3); HEMATOCRIT 30.9 % (36.0-48.0); PLATELET COUNT 204 10x3/uL (130-400); POTASSIUM - SERUM 3.9 mmol/L (3.5-5.1); RBC 3.33 10x6/uL (4.00-5.40)
[2020-12-25 08:02] VITALS: BP 120/43
--- NOTE | 2020-12-25 13:05 | NUR ---
SITTING UP IN BED. LLE IS WRAPED FROM KNEE TO TOES IN SUKHWINDER WRAP OVER HARD CAST. PAIN MEDS GIVEN ORDERED AND REQUESTED. HAS OVERHEAD FRAME WITH TRAPEZE. CALL LIGHT IN REACH
[2020-12-25 14:25] VITALS: Ht 149.9 cm; Wt 54.4 kg
--- NOTE | 2020-12-25 17:06 | NUR ---
C/O CONSTIPATION. MEDS GIVEN TO HELP. WAITING.......
--- NOTE | 2020-12-25 19:00 | NUR ---
RECEIVED SHIFT REPORT FROM GIANFRANCO MOHR RN, INFORMED PT THAT I WILL BE BACK SHORTLY, PT VERBALIZES UNDERSTANDING, DENIES NEEDS AT THIS TIME
--- NOTE | 2020-12-25 20:35 | NUR ---
PT AWAKE, OBTAINED FSBS, PT UP TO BR VIA WC WITH ASSISTANCE, PT VOIDED WITH NO DIFFICULTY, PT BACK TO BED, DENIES FURTHER NEEDS, FALL PRECAUTIONS IN PLACE
--- NOTE | 2020-12-25 21:44 | NUR ---
ADM 2100 MEDS PER MD ORDERS, SEE EMAR, SNACK PROVIDED, PT DENIES FURTHER NEEDS
[2020-12-25 22:08] VITALS: BP 125/43
--- NOTE | 2020-12-26 | NUR ---
PT RESTING WITH EYES CLOSED, RESP QUIET, NO DISTRESS NOTED, LEFT UNDISTURBED AT THIS TIME, FALL PRECAUTIONS IN PLACE
--- NOTE | 2020-12-26 02:24 | NUR ---
PT RESTING WITH EYES CLOSED, RESP QUIET, NO DISTRESS NOTED, LEFT UNDISTURBED AT THIS TIME, FALL PRECAUTIONS IN PLACE
--- NOTE | 2020-12-26 05:56 | NUR ---
PT RESTING WITH EYES CLOSED, AROUSES TO SOFT VERBAL STIMULATION, ADM 0600 MED PER MD ORDERS, SEE EMAR, PT DENIES FURTHER NEEDS
[2020-12-26 07:11] LABS: BASOPHILS 0.4 % (0-2); EOSINOPHILS 1.7 % (0-7); HEMATOCRIT 29.8 % (36.0-48.0); HEMOGLOBIN 9.8 g/dL (12-16); LYMPHOCYTES 33.9 % (15-50); MCV 93.9 fL (80.0-100.0); MEAN PLATELET VOLUME 8.7 fL (7.4-10.4); MONOCYTES 8.4 % (2-11); NEUTROPHILS 55.6 % (40-80); PLATELET COUNT 215 10x3/uL (130-400); RBC 3.17 10x6/uL (4.00-5.40); RDW 17.2 % (11.5-14.5); WBC 5.9 10x3/uL (4.8-10.8)
[2020-12-26 07:20] LABS: ANION GAP 8.2 mmol/L (8-16); CALCIUM 8.9 mg/dL (8.5-10.1); CREATININE - SERUM 0.8 mg/dL (0.6-1.3); POTASSIUM - SERUM 4.2 mmol/L (3.5-5.1)
[2020-12-26 08:28] VITALS: BP 117/43
--- NOTE | 2020-12-26 11:43 | NUR ---
SUPPISOTORY GIVEN FOR CONSTIPATION. SHE HAS NOT HAS SUCCESS WITH OTHER MEDS. C/O BEING TIRED AFTER THERAPY. CALL LIGHT IN REACH
--- NOTE | 2020-12-26 19:42 | NUR ---
PATIENT IS ALERT/ORIENT. SITTING UP AT THE SIDE OF HER BED. VISITOR IN ROOM. CALL LIGHT WITHIN REACH. VOICES NO NEEDS AT THIS TIME. WILL CONTINUE WITH PLAN OF CARE.
[2020-12-26 22:07] VITALS: BP 163/53
--- NOTE | 2020-12-26 22:58 | NUR ---
PATIENT IN BED WATCHING T.V. CALL LIGHT WITHIN REACH. VOICES NO NEEDS AT THIS TIME.
--- NOTE | 2020-12-27 02:11 | NUR ---
BEING ASSISTED TO BATHROOM BY COLLECTIONS OFFICER. DENIES FURTHER NEEDS
[2020-12-27 07:00] VITALS: BP 172/60
--- NOTE | 2020-12-27 08:00 | NUR ---
SHIFT ASSMT COMPLETED
--- NOTE | 2020-12-27 16:00 | NUR ---
WILL CONTINUE TO MONITOR
[2020-12-27 19:00] VITALS: BP 156/45
--- NOTE | 2020-12-27 19:00 | NUR ---
PT SMELTER OPERATOR LIGHT, PT UP IN BR, ASSISTED PT TO WC THEN TO BED, INFORMED PT THAT I WILL BE BACK SHORTLY TO DO ASSESSMENT, PT VERBALIZES UNDERSTANDING, DENIES FURTHER NEEDS AT THIS TIME
--- NOTE | 2020-12-27 20:58 | NUR ---
ASSESSMENT PER FLOW SHEET, VS OBTAINED PER CASTING AGENT, OBTAINED FSBS, PT UP TO BR VIA WC WITH ASSISTANCE, VOIDED AND HAD SMALL BM WITH NO DIFFICULTY, PT TO SINK, WASHES HANDS, PT BACK TO BED, ADM 2100 MEDS PER MD ORDERS, SEE EMAR, INFORMED PT THAT I WILL ADM INSULIN, PT VERBALIZES UNDERSTANDING
--- NOTE | 2020-12-27 21:25 | NUR ---
ADM INSULIN PER MD ORDERS, SEE EMAR, SNACK PROVIDED
--- NOTE | 2020-12-27 22:33 | NUR ---
PT AWAKE, ASSISTED PT CHANGING INTO GOWN, PT DENIES FURTHER NEEDS, FALL PRECAUTIONS IN PLACE
--- NOTE | 2020-12-28 00:28 | NUR ---
PT RESTING WITH EYES CLOSED, RESP QUIET, NO DISTRESS NOTED, LEFT UNDISTURBED AT THIS TIME, FALL PRECAUTIONS IN PLACE
--- NOTE | 2020-12-28 02:37 | NUR ---
RESTING QUIETLY. CALL LIGHT WITHIN REACH
[2020-12-28 07:00] VITALS: BP 152/41
[2020-12-28 19:00] VITALS: BP 159/49
--- NOTE | 2020-12-28 20:07 | NUR ---
PATIENT IS ALERT/OREINT. HELPED TO BATHROOM. STAND BY ASST EXCEPT FOR NEEDING HELP WITH LEFT LEG DUE TO CAST.
--- NOTE | 2020-12-29 02:30 | NUR ---
PATIENT RESTING WELL. EYES CLOSED. RESPIRATIONS EASY. CALL LIGHT WITHIN REACH
--- NOTE | 2020-12-29 03:12 | NUR ---
I have reviewed this patient and I concur with the Shift Assessment completed by the Licensed Practical Nurse today this shift.
[2020-12-29 06:32] LABS: BASOPHILS 0.5 % (0-2); HEMATOCRIT 29.3 % (36.0-48.0); HEMOGLOBIN 9.7 g/dL (12-16); LYMPHOCYTES 30.9 % (15-50); MCH 31.1 pg (26.0-34.0); MCHC 33.1 g/dL (31.0-37.0); MCV 94.1 fL (80.0-100.0); MEAN PLATELET VOLUME 8.2 fL (7.4-10.4); NEUTROPHILS 55.6 % (40-80); PLATELET COUNT 248 10x3/uL (130-400); RBC 3.11 10x6/uL (4.00-5.40); RDW 17.3 % (11.5-14.5); WBC 5.6 10x3/uL (4.8-10.8)
[2020-12-29 06:54] LABS: ANION GAP 10.4 mmol/L (8-16); CALCIUM 8.6 mg/dL (8.5-10.1); CREATININE - SERUM 0.8 mg/dL (0.6-1.3); POTASSIUM - SERUM 4.4 mmol/L (3.5-5.1)
[2020-12-29 08:11] VITALS: BP 129/45
--- NOTE | 2020-12-29 16:10 | NUR ---
RESTING QUIETLY IN BED. LLE ELEVATED ON PILLOWS WITH CAST STILL IN PLACE. ALL TOES HAVE CAP REFILL < 3 SECONDS. FEET WARM AND SKIN IS PINK. REMAINS NWB TO LLE. HAS OVERHEAD FRAME AND TRAPEZE ON BED. SHE IS ABLE TO USE TO REPOSITION. CALL LIGHT IN REACH
--- NOTE | 2020-12-29 20:11 | NUR ---
AWAKE AND ALERT. ASSISTED TO BATHROOM AND BACK TO BED. RESPIRATIONS UNLABORED. MEDICATED FOR PAIN. SEE MAR. CAST IN PLACE TO LEFT ANKLE. TOES PINK AND WARM. VISITING WITH FAMILY. CALL LIGHT IN REACH.
[2020-12-29 20:40] VITALS: BP 159/53
--- NOTE | 2020-12-30 00:10 | NUR ---
MEDICATED FOR C/O PAIN IN LEFT ANKLE. SEE MAR. RESPIRATIONS UNLABORED.
--- NOTE | 2020-12-30 05:08 | NUR ---
QUIET HOURS. NO ACUTE CHANGES IN CONDITION THIS SHIFT. RESTING IN BED WITH NO DISTRESS NOTED. CAST INTACT TO LEFT ANKLE.
[2020-12-30 08:08] VITALS: BP 111/46
--- NOTE | 2020-12-30 15:50 | NUR ---
Nutrition Re-Assessment Diet: Diabetic PO intake: ~61% average x last 9 meals. Patient states that she is eating "too good." States that her appetite has picked up and that she is eating more than she has in a while. Last BM: 12/29/20 Wt: 120# (12/25/20) Meds noted: SSI, lantus Labs noted: POC Glu 129(H) Estimated nutrition needs: 1375-1650kcal (25-30kcal/kg), 55-65gms protein (1-1.2gms/kg), 1375-1650mL fluid (or per MD) Nutrition diagnosis: Inadequate oral intake r/t nausea since admission to rehab AEB decreased PO intake. - IMPROVED Nutrition goals: -PO intake =/>75% meals -Meet estimated fluid needs -Stable weight DHS Recommendations/Interventions: -Recommend continue current diet. Will continue to honor food preferences within diet restrictions. -RD will follow-up within 7 days.
--- NOTE | 2020-12-30 19:30 | NUR ---
PT WATCHING TV, NO NEEDS VOICED, FALL PRECAUTIONS IN PLACE
--- NOTE | 2020-12-30 19:50 | RHP ---
PATIENT: BERENICE VALENCIA MEDICAL RECORD: [id number] ACCOUNT: [id number] LOCATION:[id number] : 41 ADMISSION DATE: 12/24/20 REHABILITATION HISTORY AND PHYSICAL EXAMINATION POST ADMISSION PHYSICIAN EXAMINATION POST ADMISSION PHYSICAL EXAMINATION AND HISTORY AND PHYSICAL ADMITTING DIAGNOSIS: Trimalleolar fracture. HISTORY OF PRESENT ILLNESS: The patient is a 75-year-old female patient admitted to rehab with a working diagnosis of trimalleolar fracture. The patient got a history of TIA, neuropathy, diabetes, hypothyroidism, colorectal cancer. Apparently, she presented with left ankle pain and deformity. She was walking in her yard, stepped in a hole. She was admitted with a trimalleolar fracture of the ankle and underwent ORIF on 12/21/2020. Her hospital stay has been significant for difficulty with pain control. She is nonweightbearing on her lower extremity, requires moderate assist. She is able to maintain nonweightbearing status and static standing, difficulty maintaining for stand pivot to chair. She will require max assist for lifting balance steady and to prevent weightbearing on her left lower extremity. Physical therapy will require acute inpatient rehabilitation to improve her ability to pivot on this strength and will require inpatient rehab in order to progress with ambulation as tolerated in order to return safely prior to the fall. The patient functioned independently at home without assistance or assistance device. The patient even reports that she was mowing her own yard. Barriers for discharge include deficits and ADL, safety awareness, pain control with nonweightbearing status. COMORBIDITIES: Include anxiety, gastroesophageal reflux disease, neuropathy, diabetes. PAST MEDICAL HISTORY: Significant for neuropathy, has got a history of diabetes, thyroid problems, got a history of acid reflux, diarrhea, colon cancer. PAST SURGICAL HISTORY: Includes colon resection. She has also had screws in her foot from the broken ankle. She has also had gallbladder surgery, shoulder surgery. ALLERGIES: WELLBUTRIN AND CHANTIX. CURRENT MEDICATIONS: Include fentanyl 12 mcg patch every 3 days. She is on Actos 45 mg daily, Lexapro 20 mg daily, propranolol 60 mg daily, Protonix 40 mg daily, Lyrica 75 mg at bedtime, melatonin 9 mg at bedtime. She is on a low resistance sliding scale with insulin. She is on Lantus 30 units at bedtime, Mucinex 1200 mg b.i.d., Colace 100 mg b.i.d., benzonatate Tessalon Perles 100 mg t.i.d., baclofen 100 mg t.i.d., atorvastatin 10 mg at bedtime, Mirapex 1 mg at bedtime, glucose replacement protocol, Zofran 4 mg q.6 hours p.r.n., Percocet 5/325 one tab q.4 hours p.r.n., and Percocet 2 tabs if needed for severe pain. HABITS: No current alcohol or tobacco use. FAMILY HISTORY: Noncontributory. HISTORY AND PHYSICAL [id number] BERENCIE VALENCIA SOCIAL HISTORY: The patient hopes to return back home and get back to her prior level of functioning. REVIEW OF SYSTEMS: GENERAL: Does complain of weakness and fatigue. HEENT: Denies cold, cough or congestion. CARDIOVASCULAR: Denies any chest pain. PHYSICAL EXAMINATION: VITAL SIGNS: Stable, afebrile. GENERAL: An elderly female, in no acute distress upon exam. HEENT: Normocephalic and atraumatic. Mucosa moist. NECK: Supple. No lymphadenopathy. LUNGS: Clear at this time. No wheezing or rales. HEART: Regular rate and rhythm. No murmurs, rubs or gallops. ABDOMEN: Soft, benign, nondistended. Positive bowel sounds times 4. EXTREMITIES: No clubbing, cyanosis or edema. Postoperative area looks good. NEUROLOGIC: She does have some problems with truncal stability and weakness. LABORATORY DATA: White count of 5.7, H&H 10.2 and 30.9, and platelet count is noted to be 284. Her sodium is 141, potassium 3.9, BUN and creatinine of 29 and 0.9, and blood sugars noted to be 114. ASSESSMENT: This is a 75-year-old female patient admitted to rehab with a working diagnosis of trimalleolar fracture. The patient has potential to make improvement. We instituted the following multidisciplinary therapies including, not limited to physical, occupational, respiratory, speech, nutritional services, prosthetics and orthotics. Given her complex medical condition and risks for more complications, rehabilitation services cannot be provided at a low level of care such as group home facility. PLAN: 1. Admit to [facility] for inpatient therapy to include the following disciplines; A. Physical therapy to improve gait, all transfer skills and bed mobility to a modified independent level. B. Occupational therapy to improve activities of daily living. C. Case management to help with discharge planning and placement options. D. Nutrition to assist with nutritional needs. E. Rehabilitation nursing to assist in monitoring the patient's underlying medical conditions and to assist with any type of bowel or bladder management. 2. The patient's current medication and medical care will be continued. 3. Will be placed on standard fall precautions. 4. The patient's estimated length of stay is approximately 7-10 days. 5. Discuss this patient during care team staff meeting this week and will work on that single leg pivot and I will see her again in the a.m. TRANSINT:[id number] Voice Confirmation ID: [id number] DOCUMENT ID: [id number] RILEY notes whether there has been none or any medical/functional change since admission: - No change since preadmission screen. HISTORY AND PHYSICAL [id number] BERENICE VALENCIA attests patient continues to be appropriate for IRF: - Continues to be appropriate. MARITA BUTLER MD at 1950 CC: [id number] DICTATION DATE: 12/25/20 0929 ENVIRONMENTAL MONITORING TECHNICIAN: 12/25/20 1037 ADM IN [place] [id number] [place] [address]
[2020-12-30 19:56] VITALS: BP 126/41
--- NOTE | 2020-12-30 21:49 | NUR ---
ASSESSMENT PER FLOW SHEET, VS OBTAINED PER SUPERVISOR SHUTTLE VENEERING, PT REPORTS FLATUS, BM TODAY, AND VOIDING WITH NO DIFFICULTY, CAST TO LEFT ANKLE CDI WITH NO DRAINAGE NOTED, PT C/O PAIN, WILL ADM PAIN MED, ADM 2100 MEDS PER MD ORDERS, SEE EMAR WITH FRESH H20
--- NOTE | 2020-12-30 22:06 | NUR ---
ADM PAIN MED AND INSULIN PER MD ORDERS, SEE EMAR, PT REFUSES HUMALOG, ONLY WANTED LANTUS, REFUSES SNACK, PT UP TO BR WITH ASSISTANCE VIA WC, VOIDED, BACK TO BED, DENIES FURTHER NEEDS, FALL PRECAUTIONS IN PLACE
--- NOTE | 2020-12-31 00:29 | NUR ---
PT AWAKE, PT UP TO BR VIA WC WITH ASSISTANCE, VOIDED WITH NO DIFFICULTY, PT BACK TO BED, REQUESTED AND SERVED FRESH H20, DENIES FURTHER NEEDS, FALL PRECAUTIONS IN PLACE
--- NOTE | 2020-12-31 02:25 | NUR ---
PT RESTING WITH EYES CLOSED, RESP QUIET, NO DISTRESS NOTED, LEFT UNDISTURBED AT THIS TIME, FALL PRECAUTIONS IN PLACE
--- NOTE | 2020-12-31 06:12 | NUR ---
PT AWAKE, ADM 0600 MEDS AND PAIN MED PER MD ORDERS, SEE EMAR, PT UP TO BR VIA WC WITH ASSISTANCE, VOIDED WITH NO DIFFICULTY, PT BACK TO BED, FRESH H2O SERVED, DENIES FURTHER NEEDS, FALL PRECAUTIONS IN PLACE
[2020-12-31 07:00] VITALS: BP 173/40
[2020-12-31 08:00] VITALS: BP 173/40
--- NOTE | 2020-12-31 19:39 | NUR ---
RESTING IN BED, FAMILY IN ROOM, NO DISTRESS NOTED, CASTING TO L LOWER LEG DRY AND INTACT, UP TO BR WITH 1 ASSIST
[2020-12-31 21:43] VITALS: BP 154/48
[2021-01-01 05:58] VITALS: BP 150/64
--- NOTE | 2021-01-01 08:00 | NUR ---
SHIFT ASSMT COMPLETED.LEFT ANKLE IN SOFT CAST.NWB.TOES EXPOSED.ABLE TO WIGGLE WITH TOES PINK.BREAKFAST GIVEN.
--- NOTE | 2021-01-01 12:00 | NUR ---
SITTING UP IN BED EATING LUNCH.
--- NOTE | 2021-01-01 13:40 | NUR ---
SPOKE WITH 'S NURSE TAMIKO TADEO;STATED SHE WILL COME BY Tuesday BEFORE PT IS DISCHARGED TO REMOVE DRSG AND SUTURES OR MICHAEL AND WRITE SCRIPT FOR BOOT.RELAYED MESSAGE TO PT.
[2021-01-01 19:33] VITALS: BP 168/42
--- NOTE | 2021-01-01 20:01 | NUR ---
AWAKE AND ALERT. RESTING IN BED WITH RESPIRATIONS UNLABORED. CAST IN PLACE TO LEFT ANKLE. TOES WARM AND PINK. NON WEIGHT BEARING IN LEFT FOOT. NO DISTRESS NOTED. CALL LIGHT IN REACH.
--- NOTE | 2021-01-02 05:11 | NUR ---
QUIET HOURS. NO ACUTE CHANGES IN CONDITION THIS SHIFT. RESTING IN BED WITH RESPIRATIONS UNLABORED. NO DISTRESS NOTED. CAST TO LEFT ANKLE IN PLACE.
--- NOTE | 2021-01-02 05:57 | NUR ---
BLOOD SUGAR 55. AWAKE AND ALERT. SKIN WARM AND DRY. RESPIRATIONS UNLABORED. SNACK OF CRACKERS AND PUDDING GIVEN ALONE WITH A GLASS OF ORANGE JUICE. WE DISCUSSED LANTUS INSULIN DOSE AND SHE SAID SHE DIDNT WANT IT REDUCED BECAUSE SHE "DIDNT EAT RIGHT AT HOME AND AT HOME IT USUALLY RAN HIGH." EDUCATION DONE ON REPORTING TO NURSE IF SHE STARTS FEELING WEAK, SWEATY, CLAMY OR SHAKY. SHE VOICES UNDERSTANDING. CALL LIGHT IN REACH.
--- NOTE | 2021-01-02 06:01 | NUR ---
MEDICATED FOR PAIN. SEE MAR.
[2021-01-02 06:13] LABS: ANION GAP 10.7 mmol/L (8-16); CALCIUM 8.8 mg/dL (8.5-10.1); CARBON DIOXIDE 31.6 mmol/L (21.0-32.0); CREATININE - SERUM 0.9 mg/dL (0.6-1.3); POTASSIUM - SERUM 4.3 mmol/L (3.5-5.1)
[2021-01-02 06:21] LABS: BASOPHILS 0.7 % (0-2); EOSINOPHILS 1.8 % (0-7); HEMATOCRIT 31.4 % (36.0-48.0); HEMOGLOBIN 10.3 g/dL (12-16); LYMPHOCYTES 30.4 % (15-50); MCH 30.4 pg (26.0-34.0); MCHC 32.8 g/dL (31.0-37.0); MCV 92.7 fL (80.0-100.0); MEAN PLATELET VOLUME 8.1 fL (7.4-10.4); NEUTROPHILS 56.1 % (40-80); PLATELET COUNT 277 10x3/uL (130-400); RBC 3.39 10x6/uL (4.00-5.40); RDW 16.7 % (11.5-14.5)
--- NOTE | 2021-01-02 06:35 | NUR ---
LAB REPORTS GLUCOSE OF 45. ASYMPTOMATIC. ALREADY TREATED WITH SNACK AND JUICE. RESTING WITH NO DISTRESS NOTED.
[2021-01-02 07:00] VITALS: BP 118/54
--- NOTE | 2021-01-02 15:33 | NUR ---
IN THERAPY IN THE GYM
--- NOTE | 2021-01-02 15:58 | NUR ---
PATRICK HAS BEEN FAXED TO [facility] FOR A WHEELCHAIR AND A BEDSIDE COMMODE FOR HOME USE TO BE DELIVERED HERE. WILL CONTINUE TO FOLLOW WITH PATIENT. HER TENATIVE DC DATE IS 01/06/21.
--- NOTE | 2021-01-02 20:23 | NUR ---
AWAKE AND ALERT. RESTING IN BED WITH RESPIRAITONS UNLABORED. ASSISTED TO BATHROOM AND BACK TO BED. VERY INDEPENDENT WITH TRANSFERS. CAST TO LEFT ANKLE INTACT. NO DISTRESS NOTED.
[2021-01-02 20:46] VITALS: BP 161/46
--- NOTE | 2021-01-03 05:31 | NUR ---
QUIET HOURS. NO ACUTE CHANGES IN CONDITION THIS SHIFT. CAST IN PLACE. NO DISTRESS NOTED.
[2021-01-03 07:00] VITALS: BP 141/47
[2021-01-03 19:00] VITALS: BP 153/43
--- NOTE | 2021-01-03 19:33 | NUR ---
I have reviewed this patient and I concur with the Shift Assessment completed by the Licensed Practical Nurse today this shift.
--- NOTE | 2021-01-03 22:19 | NUR ---
PATIENT PAIN LEVEL 07/13. TOILETED & GOWN ON. RETURNED TO LOW BED. ALARM ON. CALL LIGHT WITHIN REACH. WILL CONTINUE TO MONITOR.
--- NOTE | 2021-01-04 01:30 | NUR ---
PATIENT USED CALL LIGHT FOR ASSIST. STANDBY ASSIST INTO & OUT OF WHEELCHAIR & OFF & ON COMMODE. VOID ONLY. ASSIST WITH LEGS INTO BED. ALARM ON. CALL LIGHT WITHIN REACH. WILL CONTINUE TO MONITOR.
--- NOTE | 2021-01-04 01:57 | NUR ---
PATIENT USED CALL LIGHT FOR ASSIST. PATIENT ASSIST INTO WHEELCHAIR. VOID ONLY. RETURNED TO LOW BED. ALARM ON. CALL LIGHT & BEDSIDE TABLE WITHIN REACH. WILL CONTINUE TO MONITOR.
--- NOTE | 2021-01-04 03:20 | NUR ---
PATIENT USED CALL LIGHT FOR ASSIST. STANDBY ASSIST INTO & OUT OF WHEELCHAIR & ON & OFF COMMODE. RETURNED TO LOW BED. ASSIST WITH LEGS INTO BED. ALARM ON. CALL LIGHT WITHIN REACH. WILL CONTINUE TO MONITOR.
--- NOTE | 2021-01-04 06:22 | NUR ---
PATIENT FSBS 57.ICE CREAM GIVEN PER PATIENT REQUEST.
[2021-01-04 07:00] VITALS: BP 172/50
--- NOTE | 2021-01-04 13:24 | NUR ---
REFUSED SHOWER TODAY. IS DRESSED AND SITTING IN WC IN HER ROOM. LLE STILL WRAPPED IN SUKHWINDER WRAP AND SHE IS NWB. PAIN MEDS GIVEN ORDERED AND REQUESTED. CAP REFILL <3 SECONDS AND BOTH FEET AREA WARM AND DRY. CALL LIGHT IN REACH.
--- NOTE | 2021-01-04 19:47 | NUR ---
PATIENT RECEIVED SITTING UP IN BED. ASSESSMENT & VITAL SIGNS DONE. REFUSED BATH FOR SECOND TIME. INFORMED PATIENT THERAPY MIGHT NOT HAVE PATIENT ON BATH LIST. LEFT LEG ELEVATED. CAST INTACT. BED LOW. ALARM ON. SIDE TABLE & CALL LIGHT WITHIN REACH. WILL CONTINUE TO MONITOR.
[2021-01-04 21:15] VITALS: BP 162/50
--- NOTE | 2021-01-04 21:15 | NUR ---
PATIENT GIVEN TWO ICE CREAMS TO EAT. FSBS DROPS LOW WITHOUT SNACK. WILL CONTINUE TO MONITOR.
--- NOTE | 2021-01-04 23:47 | NUR ---
I have reviewed this patient and I concur with the Shift Assessment completed by the Licensed Practical Nurse today this shift.
--- NOTE | 2021-01-05 02:13 | NUR ---
PATIENT USED CALL LIGHT FOR ASSIST. PATIENT STANDBY ASSIST. INTO & OUT OF BED & WHEELCHAIR. ON & OFF COMMODE. VOID ONLY. RETURNED TO LOW BED. ALARM ON. CALL LIGHT FOR ASSIST. WILL CONTINUE TO MONITOR.
--- NOTE | 2021-01-05 05:47 | NUR ---
PATIENT C/O BEING SWEATY. FSBS 47 PATIENT WANTED PUDDING & ATE IT. WILL CHECK IN 15 MINUTES.
--- NOTE | 2021-01-05 06:00 | NUR ---
PATIENT FSBS 88. PATIENT WANTED TO DRINK ORANGE JUICE. WILL CHECK FSBS 15 MINUTES.
--- NOTE | 2021-01-05 06:15 | NUR ---
PATIENT FSBS 136. PATIENT MORE ALERT & NO SWEATING. BED LOW. CALL LIGHT WITHIN REACH. WILL CONTINUE TO MONITOR.
[2021-01-05 07:59] LABS: CALCIUM 8.8 mg/dL (8.5-10.1); CREATININE - SERUM 0.9 mg/dL (0.6-1.3)
[2021-01-05 08:01] LABS: BASOPHILS 0.6 % (0-2); EOSINOPHILS 1.2 % (0-7); HEMATOCRIT 28.8 % (36.0-48.0); HEMOGLOBIN 9.7 g/dL (12-16); LYMPHOCYTES 20.2 % (15-50); MCH 30.9 pg (26.0-34.0); MCHC 33.5 g/dL (31.0-37.0); MCV 92.4 fL (80.0-100.0); MEAN PLATELET VOLUME 8.1 fL (7.4-10.4); MONOCYTES 9.1 % (2-11); NEUTROPHILS 68.9 % (40-80); PLATELET COUNT 239 10x3/uL (130-400); RBC 3.12 10x6/uL (4.00-5.40); RDW 16.4 % (11.5-14.5); WBC 6.7 10x3/uL (4.8-10.8)
[2021-01-05 08:20] VITALS: BP 136/43
[2021-01-05] MEDS ORDERED: Actos PO (08:52)
[2021-01-05] MEDS ORDERED: Duragesic TRANSDERM (08:52)
[2021-01-05] MEDS ORDERED: PERCOCET 5-3251 TAB PO (08:52)
--- NOTE | 2021-01-05 11:15 | NUR ---
Nutrition Re-Assessment Diet: Diabetic PO intake: ~77% average x last 9 meals Last BM: 01/01/21 Wt: 120# (12/25/20) Meds noted: SSI, lantus, abx Labs reviewed Estimated nutrition needs: 1375-1650kcal (25-30kcal/kg), 55-65gms protein (1-1.2gms/kg), 1375-1650mL fluid (or per MD) Nutrition diagnosis: Inadequate oral intake r/t nausea since admission to rehab AEB decreased PO intake. - RESOLVED at this time. Nutrition goals: -PO intake =/>75% meals -Meet estimated fluid needs -Dry weight stable Recommendations/Interventions: -Recommend continue current diet. Will continue to honor food preferences within diet restrictions. -RD will follow-up within 7 days.
[2021-01-05 19:36] VITALS: BP 151/51
--- NOTE | 2021-01-05 19:55 | NUR ---
AWAKE AND ALERT. SITTING UP IN WHEECHAIR. RESPRIATIONS UNLABORED. CAST IN PLACE TO LEFT ANKLE. NO DISTRESS NOTED.
--- NOTE | 2021-01-06 05:05 | NUR ---
REQUEST BLOOD SUGAR CHECK, STATES SHE FEELS ANXIOUS. BLOOD SUGAR 176. SKIN WARM AND DRY RESPIRATIONS UNLABORED. CALL LIGHT IN REACH.
[2021-01-06 08:12] VITALS: BP 179/62
--- NOTE | 2021-01-06 10:26 | NUR ---
PATIENT DISCHARGING HOME WITH FAMILY TODY. [facility] WILL PROVIDE THERAPY AT HOME. [facility] HAS DELIVERED A WHEELCHAIR AND BEDSIDE COMMODE TO PATIENT. TAMARA SIGNED, IMM SERVED AND EXPLAINED, ONE GIVEN TO PATIENT AND ONE FILED IN CHART. COMPARE DATA REVIEWED PATIENT VOICED UNDESTANDING. DR. MOORE/ARGENIS 01/16/21 @ 10:00, DR. DENG 01/13/21 @ 10:40. DISCHARGE INSTRUCTION FAXED TO PCP, HOME [facility] AND REVIEWED WITH PATIENT.
== END 2021-01-06 14:32 | disposition home health service (06) | DRG 561 ==
LOC: D.REHAB 14:52
PROVIDERS: ADMIT Emergency Medicine; ATTEND Emergency Medicine
DX: S82.852D Displaced trimalleolar fracture of left lower leg, subsequent encounter for closed fracture with routine healing (principal); W19.XXXD Unspecified fall, subsequent encounter; K21.9 Gastro-esophageal reflux disease without esophagitis; E11.40 Type 2 diabetes mellitus with diabetic neuropathy, unspecified; F41.9 Anxiety disorder, unspecified; Z85.038 Personal history of other malignant neoplasm of large intestine; Z86.73 Personal history of transient ischemic attack (TIA), and cerebral infarction without residual deficits